=== PATIENT | female | born 1960 | race Caucasian/White ===

== ENCOUNTER 2019-03-09 21:22 | Emergency (ER) | payer MEDICAID ==
[~2019-03-09] VITALS: Ht 160 cm; Wt 78.5 kg
[2019-03-09 21:26] VITALS: Ht 160 cm; Wt 78.5 kg
[2019-03-09 22:51] VITALS: BP 197/95
== END 2019-03-09 22:51 | disposition home or self-care (01) ==
LOC: ED 21:22
DX: S43.402A Unspecified sprain of left shoulder joint, initial encounter (principal); I10 Essential (primary) hypertension; E11.9 Type 2 diabetes mellitus without complications; W23.0XXA Caught, crushed, jammed, or pinched between moving objects, initial encounter; Y93.89 Activity, other specified; Y92.89 Other specified places as the place of occurrence of the external cause; Y99.8 Other external cause status